=== PATIENT | male | born 1955 | race Caucasian/White ===

== ENCOUNTER 2018-08-27 08:49 | Day surgery (SDC) | payer OTHER ==
[2018-08-25 12:43] VITALS: BMI 32.1
[2018-08-27] MEDS ORDERED: oxyCODONE HCL 10 MG SUSTAINED ACTING TABLET PO STA (09:43)
[2018-08-27] MEDS ORDERED: MIDAZOLAM HCL 2 MG/2 ML SINGLE DOSE VIAL ONE ×2 (12:50)
[2018-08-27] MEDS ORDERED: PROPOFOL 20 ML ONE ×8 (12:51→14:25)
[2018-08-27] MEDS ORDERED: DEXAMETHASONE SOD PHOSPHATE 4 MG/1 ML VIAL ONE ×2 (12:52)
[2018-08-27] MEDS ORDERED: KETOROLAC TROMETHAMINE 30 MG/1 ML VIAL ONE (12:52)
[2018-08-27] MEDS ORDERED: ONDANSETRON 4 MG/2 ML VIAL ONE ×2 (12:52→16:57)
[2018-08-27] MEDS ORDERED: SODIUM CHLORIDE 0.9% P/F 10 ML VIAL IJ ONE (12:52)
[2018-08-27] MEDS ORDERED: ceFAZolin SODIUM 1 GM VIAL ONE (12:52)
[2018-08-27] MEDS ORDERED: ROCURONIUM BROMIDE 50 MG/5 ML VIAL ONE (12:54)
--- NOTE | 2018-08-27 13:21 | HP ---
History & Physical Update - History History: No Change - Physical Physical: No Change - Assessment Assessment: No Change - Plan Plan: No Change
[2018-08-27] MEDS ORDERED: THROMBIN (RECOMBINANT) 5,000 UNIT VIAL TP ONE (13:22)
[2018-08-27] MEDS ORDERED: GUM MASTIC/STORAX/MSAL/ALCOHOL 1 DRP DROPSBTL MC ONE (13:22)
[2018-08-27] MEDS ORDERED: LIDOCAINE 1%/EPI 1:100000 (20 ML MULTI DOSE VIAL) ONE (13:22)
[2018-08-27] MEDS ORDERED: ONDANSETRON 4 MG/2 ML VIAL IVPUSH PRN ×2 (13:25→16:15)
[2018-08-27] MEDS ORDERED: oxyCODONE HCL 5 MG TABLET PO PRN (13:25)
[2018-08-27] MEDS ORDERED: LACTATED RINGERS SOLUTION 1,000 ML IV SCH ×2 (13:30→16:15)
[2018-08-27] MEDS ORDERED: SUCCINYLCHOLINE CHLORIDE 200 MG/10 ML VIAL ONE (14:08)
[2018-08-27] MEDS ORDERED: ACETAMINOPHEN INJECTION 100 ML IVPB ONE (14:12)
[2018-08-27] MEDS ORDERED: METOPROLOL TARTRATE 5 MG/5 ML VIAL ONE (14:17)
[2018-08-27] MEDS ORDERED: PHENYLEPHRINE HCL 10 MG/1 ML SINGLE DOSE VIAL ONE (14:35)
[2018-08-27] MEDS ORDERED: ePHEDrine SULFATE 50 MG/1 ML AMPULE ONE (14:37)
[2018-08-27] MEDS ORDERED: LIDOCAINE HCL/PF 2% SDV 5ML VIAL ONE (14:50)
[2018-08-27] MEDS ORDERED: KETOROLAC TROMETHAMINE 30 MG/1 ML VIAL IVPUSH PRN (16:15)
--- NOTE | 2018-08-27 16:23 | OP ---
Operative Note - Note: Operative Date: 08/27/18 Pre-Operative Diagnosis: cervcial stenosis Operation: anterior cervcial disectomy fusion of C3-C4 and C4-C5 Surgeon: Devendra Gibbons Executive Administrative Assistant: Yany Dukes Anesthesiologist/GEOTHERMAL HEAT PUMP MACHINIST: Tray Senior Anesthesia: General Estimated Blood Loss (mls): 20 Fluid Volume Replaced (mls): 1,000 Operative Report Dictated: Yes
--- NOTE | 2018-08-27 16:25 | SURG ---
Surgery Commander [employer] Note Commander [employer]: Yany Dukes PA-C Date of Service: 08/27/18 Diagnosis: cervical stenosis Procedure: anterior cervical disectomy fuson of C3-4 and C4-5 I was present for the entirety of the operative procedure. For further detail, please refer to operative report. Visit type - Case Type Case Type: Scheduled - Emergency Emergency Visit: No - New patient This patient is new to me today: Yes Date on this admission: 08/27/18
[2018-08-27] MEDS: diazePAM 2 MG TABLET PO SCH ×2 (17:54→22:00)
[2018-08-27] MEDS: ACETAMINOPHEN 650 MG/20.3 ML ORAL SOLUTION (CUPS) PO SCH (18:16)
--- NOTE | 2018-08-27 19:12 | OP ---
DATE OF OPERATION: 08/27/2018 PREOPERATIVE DIAGNOSIS: Cervical stenosis C3-4, C4-5. POSTOPERATIVE DIAGNOSIS: Cervical stenosis C3-4, C4-5. PROCEDURE PERFORMED: Anterior cervical discectomy fusion C3-4, anterior cervical discectomy fusion C4-5, placement instrumentation C3-C5, placement prosthetic cages C3-C5. SURGEON: Devendra Gibbons M.D. SUPERINTENDENT FISH HATCHERY: Praneeth Pompa ESTIMATED BLOOD LOSS: 50 mL INTRAVENOUS FLUIDS: Per anesthesia. ANESTHESIA: General. COMPLICATIONS: There were none. DISPOSITION: Patient brought to the PACU in stable condition. INDICATION FOR SURGERY: The patient is a 63-year-old man who has been suffering from pain from his neck down his arm. He has also had numbness and tingling in his hands and legs. He has also noted gait imbalance. X-rays and MRI were completed, which noted he has cervical stenosis. I had a discussion with him regarding the diagnosis of cervical myelopathy, the natural history of cervical myelopathy is discussed with the patient including a stepwise deterioration in function. Surgery was recommended to prevent any further loss of neurological function. Risks, benefits, and alternatives were discussed and the patient consented to surgery. OPERATIVE NOTE: Patient is brought to the operating room by anesthesia staff. After appropriate patient identification is performed, general anesthesia was given. He was placed supine on the OR bed with his arms tucked at his sides. All bony prominences were padded at this time. Neural monitor leads were attached. A shoulder roll was placed underneath the shoulder to extend his neck to the point that he could tolerate it in the preoperative holding area. A needle was taped onto his neck to ruth off the C3-4 level, and x-ray was taken to confirm this is correct. Needle was removed, and 10 mL of lidocaine with epinephrine was injected into his neck at this time. His neck was prepped and draped in a sterile manner. At this point a timeout was completed. An incision was made on the left side of his neck. Dissection was carried down to the platysma. The platysma was cut in line of the skin incision. Next interval between the sternocleidomastoid muscle as well as strap muscles were developed. Next the interval between the carotid sheath as well as tracheal esophagus was developed. Peanuts were used to elevate off the peritoneal fascia. A needle was placed into the C3-4 disk. An x-ray was taken to confirm this was correct. The needle was removed and the longus colli muscles were elevated off. Retractor blades were placed in. A Man pin was placed in the body of C3 and C5. A knife was used to incise the disk and traction was applied. At this point a microscope was brought in. A Ayala was used to elevate the disks off using a series of pituitaries, Kerrisons and curets. A diskectomy was completed. The endplates were decorticated at this time. A size 6 cage filled with bone graft was placed in the C3-4 level and C4-5 level. Screws were placed into the body C3, C4, C5. Man pins removed. AP and lateral x-rays confirmed the instrumentation to be in stable position. Final tightening was performed. The platysma was closed with 2-0 Vicryl suture. Skin was closed with 3-0 Monocryl suture. Dermabond was applied. Steri-Strips were applied. Sterile dressing was applied. Patient was placed supine on OR bed, and brought to the PACU in stable condition. Alta [id number] MTDD
[2018-08-27] MEDS ORDERED: amLODIPine BESYLATE 5 MG TABLET (FP) PO SCH (22:00)
[2018-08-27] MEDS ORDERED: diazePAM 2 MG TABLET PO SCH (22:00)
[2018-08-27] MEDS: oxyCODONE HCL 5 MG TABLET PO PRN (22:05)
[2018-08-27] MEDS: CEFAZOLIN 1 GM/D5W 1 GM/50 ML BAG IVPB SCH (22:11)
[2018-08-28] MEDS: oxyCODONE HCL 5 MG TABLET PO PRN (04:02)
[2018-08-28] MEDS: ACETAMINOPHEN 650 MG/20.3 ML ORAL SOLUTION (CUPS) PO SCH ×2 (04:03→05:57)
[2018-08-28] MEDS ORDERED: DEXAMETHASONE SOD PHOSPHATE 20 MG/5 ML VIAL IVPB SCH (05:25)
[2018-08-28] MEDS ORDERED: DEXAMETHASONE SOD PHOSPHATE 4 MG/1 ML VIAL IVPB SCH (05:27)
[2018-08-28] MEDS: diazePAM 2 MG TABLET PO SCH (05:58)
[2018-08-28] MEDS: CEFAZOLIN 1 GM/D5W 1 GM/50 ML BAG IVPB SCH (06:07)
--- NOTE | 2018-08-28 08:09 | DS ---
Physical Exam: SUBJECTIVE: Patient seen and examined this am, tolerating a diet(clears no difficulty swallowing.) OBJECTIVE: Vital Signs Temperature 98.1 F 08/28/18 06:00 Pulse Rate 98 H 08/28/18 06:00 Respiratory Rate 18 08/28/18 06:00 Blood Pressure 174/95 H 08/28/18 06:00 O2 Sat by Pulse Oximetry (%) 96 08/28/18 06:00 PHYSICAL EXAM GENERAL: The patient is awake, alert, and fully oriented, in no acute distress. NECK: Trachea midline, supple. Dressing c/d/i. No stridor. LUNGS: Breath sounds equal, clear to auscultation bilaterally, no wheezes, no crackles, no accessory muscle use. HEART: Regular rate and rhythm, S1, S2 without murmur, rub or gallop. ABDOMEN: Soft, nontender, nondistended. EXTREMITIES: 2+ pulses, warm, well-perfused, no edema. NEUROLOGICAL: Normal speech, gait not observed. Ornamental Painter strength equal b/l. Flexion/extension of upper ext 5/5 b/l. PSYCH: Normal mood, normal affect. LABS HOSPITAL COURSE: The patient was admitted to the Med-Surg Unit after an elective repair of their Cervical stenosis. Now, s/p C3-4 and C4-5 Anterior cervical disectomy fusion. The day of surgery, the patient ambulated the hallways with assistance. Narcotic and non-narcotic pain management control was achieved with an oral and IV approach. An xray was obtained and confirmed hardware placement at C3/4 and C4/5, no fractures or dislocations. Alpa-operative IV ABX were administered. DVT prophylaxis was achieved with SCDs and early ambulation. The patient ambulated with Physical Therapy and no services were recommended upon discharge. Narcotic scripts and or muscle relaxants were checked with CTS GLOVE MAKER prior to escibe. The discharge instructions and an oral pain management plan were reviewed with the patient. All questions answered. Above plan discussed with Dr. Gibbons and agreed. Date of Admission:08/27/18 Date of Discharge: 08/28/18 Minutes to complete discharge: 20 <Yany Dukes - Last Filed: 09/01/18 16:18> Physical Exam: SUBJECTIVE: Patient seen and examined OBJECTIVE: Vital Signs Temperature 98.0 F 08/28/18 10:00 Pulse Rate 92 H 08/28/18 10:00 Respiratory Rate 17 08/28/18 10:00 Blood Pressure 143/87 08/28/18 10:00 O2 Sat by Pulse Oximetry (%) 96 08/28/18 10:00 PHYSICAL EXAM GENERAL: The patient is awake, alert, and fully oriented, in no acute distress. HEAD: Normal with no signs of trauma. EYES: PERRL, extraocular movements intact, sclera anicteric, conjunctiva clear. ENT: Ears normal, nares patent, oropharynx clear without exudates, moist mucous membranes. NECK: Trachea midline, full range of motion, supple. LUNGS: Breath sounds equal, clear to auscultation bilaterally, no wheezes, no crackles, no accessory muscle use. HEART: Regular rate and rhythm, S1, S2 without murmur, rub or gallop. ABDOMEN: Soft, nontender, nondistended, normoactive bowel sounds, no guarding, no rebound, no hepatosplenomegaly, no masses. EXTREMITIES: 2+ pulses, warm, well-perfused, no edema. NEUROLOGICAL: Cranial nerves II through XII grossly intact. Normal speech, gait not observed. PSYCH: Normal mood, normal affect. SKIN: Warm, dry, normal turgor, no rashes or lesions noted. LABS HOSPITAL COURSE: Date of Admission:08/27/18 Date of Discharge: 09/04/18 Patient seen and examined Agree with above D/C Planning <Devendra Gibbons - Last Filed: 09/04/18 11:03> Visit type - Emergency Emergency Visit: No - New patient This patient is new to me today: No <Yany Dukes - Last Filed: 09/01/18 16:18>
[2018-08-28 10:35] VITALS: BP 143/87; PULSE 92; TEMP 98
--- NOTE | 2018-09-02 16:12 | PATH ---
Surgical Pathology Report Patient Name: CHAZ CASTILLO [facility]. Rec. #: [id number] /Age/Gender: 1955 (Age: 63) / M Account: [id number] Location: [facility] AMBULATORY Taken: 08/27/2018 Received: 08/27/2018 Reported: 09/02/2018 Physicians: Devendra Gibbons M.D. Specimen(s) Received DISC C3-4, C4-5 Clinical History Cervical stenosis Final Diagnosis DISC, C3-4, C4-5, DISCECTOMY: CARTILAGE WITH DEGENERATIVE CHANGES. Electronically Signed Urvashi Yanez M.D. Gross Description Received in formalin labeled "disc C3-4, C4-5," is a 3.5 x 3.0 x 0.3 cm aggregate of robins fragments of fibrocartilaginous tissue. A telemarketing sales representative portion is submitted in one cassette. /08/28/2018 saudi08/28/2018
== END 2018-08-28 11:15 | disposition home or self-care (01) ==
LOC: FASU 08:49 → FM/S 17:30 → FASU 08-28 11:15
PROVIDERS: ATTEND Orthopaedic Surgery Orthopaedic Surgery of the Spine
PROC: 0RG10A0 Fusion of Cervical Vertebral Joint with Interbody Fusion Device, Anterior Approach, Anterior Column, Open Approach (ICD-10-PCS; 2018-08-27)
PROC: 0RG10K0 Fusion of Cervical Vertebral Joint with Nonautologous Tissue Substitute, Anterior Approach, Anterior Column, Open Approach (ICD-10-PCS; 2018-08-27)
PROC: 0RB30ZZ Excision of Cervical Vertebral Disc, Open Approach (ICD-10-PCS; principal; 2018-08-27 14:43)
DX: M48.02 Spinal stenosis, cervical region (principal)
CPT/HCPCS: 22551; 22552; 22845; 22853; C1889; 72050-TC-FY; 88304-TC; 94760; 97116-GP; 97161-GP; J0131